=== PATIENT | male | born 1945 | race Caucasian/White ===

== ENCOUNTER 2018-07-16 13:00 | Outpatient (RCR) | payer MEDICARE, OTHER | END 2018-07-19 | LOC: ST 13:00 | PROVIDERS: ATTEND Family Medicine Geriatric Medicine | DX: I63.9 Cerebral infarction, unspecified (principal); R13.10 Dysphagia, unspecified; M25.562 Pain in left knee; M25.561 Pain in right knee | CPT/HCPCS: 92526 ×4; 92610; 97139 ×2; G8996; G8997 ==

== ENCOUNTER → 2018-08-10 | Outpatient (CLI) | payer MEDICARE ==
--- NOTE | 2018-08-10 15:22 | Diagnostic Imaging Report ---
ADDENDUM #1 Comparison to brain MRI on 09/08/2015: 1. Chronic cortical infarcts in the left greater than right cerebellar hemispheres were not present on MRI dated 08/22/2015. 2. Additional multiple chronic lacunar infarcts involving the basal ganglia, thalami and brainstem are unchanged compared to MRI on 08/22/2015. 3. Stable mild chronic microvascular ischemic changes when compared to MRI on 09/08/2015. Signed by: Dr. Lidia Pedro M.D. on 08/31/2018 5:53 PM ORIGINAL REPORT EXAMINATION: MRI of the brain without contrast. HISTORY: Cerebral infarct, left-sided weakness COMPARISON: None available TECHNIQUE: Sagittal T2; axial DWI, T2, FLAIR, T1-IR, T2 gradient echo; coronal FLAIR. IMAGE QUALITY: Adequate. FINDINGS: Parenchyma: 1. Scattered and moderate confluent periventricular white matter T2 hyperintense foci, most likely nonspecific chronic microvascular ischemic changes. 2. Chronic lacunar infarct in the right frontoparietal deep white matter, bilateral lentiform nuclei, right caudate nucleus (right striatum nucleus and anterior limb of the internal capsule), bilateral thalami, both sides of the robert, right paramedian medulla. 3. Chronic cortical infarcts in the left greater than right inferior cerebellum (PICA distribution) and right superior cerebellum. 4. Tiny right robert and left central cerebellum GRE hypointense foci, most likely chronic microhemorrhages, perhaps related to chronic hypertension. 5. No mass, hemorrhage, acute or chronic infarcts. Skull: Unremarkable. Vessels: Expected flow voids present in the major arteries and dural sinuses. Extra-axial spaces: No abnormal signal intensity or mass effect. Brain volume: Moderate generalized brain volume loss with bilateral parietal cortical and diffuse brainstem disproportionate atrophy. Ventricles: No hydrocephalus or displacement. Foramen magnum: Unremarkable. Sella: Unremarkable. Paranasal / mastoid sinuses: No significant inflammatory disease. IMPRESSION: 1. Moderate chronic microvascular ischemic changes. 2. Multiple chronic lacunar infarct in the deep camejo nuclei and robert. 3. Multiple chronic cortical infarcts in the cerebellum. 4. A few GRE hypointense foci as dictated above. 5. Generalized brain volume loss with bilateral parietal and brainstem predominance. Signed by: Dr. Lidia Pedro M.D. on 08/10/2018 3:19 PM
== END ==
LOC: MRI 13:48
PROVIDERS: ATTEND Psychiatry & Neurology Clinical Neurophysiology
DX: I63.9 Cerebral infarction, unspecified (principal)
CPT/HCPCS: 70551

== ENCOUNTER 2018-08-11 12:55 | Outpatient (RCR) | payer MEDICARE | END 2018-08-19 | LOC: ST 12:55 | PROVIDERS: ATTEND Family Medicine Geriatric Medicine | DX: R13.10 Dysphagia, unspecified (principal); I63.9 Cerebral infarction, unspecified ==

== ENCOUNTER → 2018-08-13 | Outpatient (CLI) | payer MEDICARE ==
--- NOTE | 2018-08-14 09:45 | Diagnostic Imaging Report ---
PROCEDURE:X-RAY MODIFIED BARIUM SWALLOW COMPARISON:None. INDICATIONS:Not provided. DISCUSSION:Fluoroscopic examination was performed in conjunction with speech pathology, during swallowing of a variety of thin and thick liquid consistencies. Penetration and trace aspiration is noted on multiple swallows. CONCLUSION:Penetration and trace aspiration is noted on multiple swallows. Please see the report from speech pathology for complete details. Dictated by: PATSY HERNDON M.D. on 08/14/2018 at 9:53 Electronically approved by: PATSY HERNDON M.D. on 08/14/2018 at 9:53
== END ==
LOC: DX 12:38
PROVIDERS: ATTEND Family Medicine Geriatric Medicine
DX: R13.13 Dysphagia, pharyngeal phase (principal); I63.9 Cerebral infarction, unspecified; M25.562 Pain in left knee; M25.561 Pain in right knee
CPT/HCPCS: 74230; 92526; 92611; G9162; G9163; G9164

== ENCOUNTER 2018-09-03 12:56 | Outpatient (RCR) | payer MEDICARE | END 2018-09-18 | LOC: ST 12:56 | PROVIDERS: ATTEND Family Medicine Geriatric Medicine | DX: I69.822 Dysarthria following other cerebrovascular disease (principal); R13.13 Dysphagia, pharyngeal phase | CPT/HCPCS: 92526 ×8; G8996; G8997 ==

== ENCOUNTER 2018-10-01 13:00 | Outpatient (RCR) | payer MEDICARE ==
--- NOTE | 2018-09-22 11:14 | NUR ---
ST Note: Pt cancelled appointment due to illness. He plans to return to clinic on his next scheduled appointment.
== END 2018-10-19 ==
LOC: ST 13:00
PROVIDERS: ATTEND Family Medicine Geriatric Medicine
DX: I63.9 Cerebral infarction, unspecified (principal); I69.922 Dysarthria following unspecified cerebrovascular disease; I69.991 Dysphagia following unspecified cerebrovascular disease

== ENCOUNTER → 2018-10-08 | Outpatient (CLI) | payer MEDICARE ==
--- NOTE | 2018-10-09 07:40 | Diagnostic Imaging Report ---
PROCEDURE:X-RAY MODIFIED BARIUM SWALLOW COMPARISON:Modified barium swallow dated 08/14/2018 INDICATIONS:Dysphasia. DISCUSSION:Fluoroscopic examination was performed in conjunction with speech pathology, during swallowing of a variety of thin and thick liquid consistencies. Fluoroscopy time: 0.1 minute Total dose: 13.65 mGy CONCLUSION:There is deep penetration with a variety of different substances. One episode of aspiration is noted. Please see the report from speech pathology for complete details. Aashish Garibay D.O. Dictated by: Aashish Garibay D.O. on 10/09/2018 at 7:51 Electronically approved by: Aashish Garibay D.O. on 10/09/2018 at 7:51
== END ==
LOC: DX 12:51
PROVIDERS: ATTEND Family Medicine
DX: R13.13 Dysphagia, pharyngeal phase (principal); I69.998 Other sequelae following unspecified cerebrovascular disease
CPT/HCPCS: 74230

== ENCOUNTER → 2019-02-23 | Outpatient (CLI) | payer MEDICARE ==
--- NOTE | 2019-02-24 10:49 | Diagnostic Imaging Report ---
PROCEDURE: X-RAY MODIFIED BARIUM SWALLOW COMPARISON: Modified barium swallow 10/08/2018. INDICATION: Aspiration, pharyngeal dysphasia. Radiation Details: Fluoroscopy time: 3.7 minute Cumulative dose: 20.2 mGy Air Kerma: 2.2 Gycm2 DISCUSSION: Fluoroscopic examination was performed in conjunction with speech pathology during swallowing a variety of thin and thick liquid consistencies. Provided images demonstrate penetration with aspiration on multiple swallows. There is severe vallecular, piriform sinus, and base of tongue residue. CONCLUSION: Modified barium swallow demonstrating significant laryngeal penetration and aspiration as above. Please refer to the speech pathology report for further details. Signed by: Dr. Carrie Wayne MD on 02/24/2019 10:46 AM
== END ==
LOC: DX 12:47
PROVIDERS: ATTEND Family Medicine Geriatric Medicine
DX: I69.992 Facial weakness following unspecified cerebrovascular disease (principal); G81.14 Spastic hemiplegia affecting left nondominant side; Z91.89 Other specified personal risk factors, not elsewhere classified; R13.13 Dysphagia, pharyngeal phase; E11.9 Type 2 diabetes mellitus without complications; R26.81 Unsteadiness on feet
CPT/HCPCS: 74230

== ENCOUNTER 2019-12-15 14:19 | Outpatient (RCR) | payer MEDICARE ==
[2019-12-15] MEDS ORDERED: LIDOCAINE/PRILOCAINE 2.5-2.5% KIT ONE (14:44)
== END 2019-12-18 ==
LOC: WCC 14:19
PROVIDERS: ATTEND Podiatrist
DX: E11.621 Type 2 diabetes mellitus with foot ulcer (principal); L97.421 Non-pressure chronic ulcer of left heel and midfoot limited to breakdown of skin; R60.0 Localized edema; G45.9 Transient cerebral ischemic attack, unspecified; G63 Polyneuropathy in diseases classified elsewhere; S72.92XA Unspecified fracture of left femur, initial encounter for closed fracture; N18.9 Chronic kidney disease, unspecified; I10 Essential (primary) hypertension; K21.9 Gastro-esophageal reflux disease without esophagitis; M13.80 Other specified arthritis, unspecified site; W01.10XA Fall on same level from slipping, tripping and stumbling with subsequent striking against unspecified object, initial encounter; Z74.01 Bed confinement status

== ENCOUNTER 2020-01-12 15:03 | Outpatient (RCR) | payer MEDICARE ==
[~2020-01-12 15:03] MED LIST: COLLAGENASE OINTMENT 30 GM TUBE ONE; LIDOCAINE/PRILOCAINE 2.5-2.5% KIT ONE
== END 2020-01-18 ==
LOC: WCC 15:03
PROVIDERS: ATTEND Podiatrist
DX: E11.621 Type 2 diabetes mellitus with foot ulcer (principal); L97.421 Non-pressure chronic ulcer of left heel and midfoot limited to breakdown of skin; W01.10XA Fall on same level from slipping, tripping and stumbling with subsequent striking against unspecified object, initial encounter; R60.0 Localized edema; N18.9 Chronic kidney disease, unspecified; I10 Essential (primary) hypertension; S72.92XA Unspecified fracture of left femur, initial encounter for closed fracture; G63 Polyneuropathy in diseases classified elsewhere; M13.80 Other specified arthritis, unspecified site; K21.9 Gastro-esophageal reflux disease without esophagitis; G45.9 Transient cerebral ischemic attack, unspecified; Z74.01 Bed confinement status
CPT/HCPCS: 36415; 82948